=== PATIENT | female | born 1965 | race Caucasian/White ===

== ENCOUNTER 2016-10-22 18:03 | Inpatient (IN) | payer OTHER ==
--- NOTE | ~2016-10-22 | CO ---
Unit #: [id number] #: [id number] Patient: RAF WILLIS [id number] [address] [place], [place] [address] [id number] I MR#: [id number] NAME: RAF WILLIS. ROOM: 323 Age: 50 Sex: F Admission Date: 10/22/2016 : 1965 Attending Physician: Brant Anderson M.D. Primary Care Physician: Ranjan Montoya Jr., A.P.R.N. Consultation Date: 10/25/2016 CONSULTATION REPORT REASON FOR CONSULTATION Possible cholecystitis. Thank you very much for asking us to see Ms. Willis. HISTORY OF PRESENT ILLNESS She is a 50-year-old white female, who has metastatic breast cancer to the bone, liver, and brain. She developed a cough and shortness of breath. She was seen by her family physician and referred to the emergency room. On evaluation in the emergency room, she was found on CT scan of the chest to have patchy multifocal ground-glass infiltrates involving the periphery of the upper and lower lobes bilaterally characteristic bilateral pneumonia. Bony metastatic disease was seen involving the bilateral ribs, sternum, and thoracic spine. Multiple hqa-dyawmefe-nt-count low density nodules were found in both lobes of the liver. There were new since 12/2015 suggestive of hepatic metastatic disease. A CT scan of the abdomen and pelvis was then obtained, which revealed multifocal hepatic metastatic disease, diffuse skeletal metastatic disease, gallbladder wall thickening, or pericholecystic fluid. No gallstones were seen. The patient is not complaining of any abdominal pain or discomfort. She denies any GI bleeding. She presents at this time for further evaluation and treatment. PAST MEDICAL HISTORY 1. Metastatic breast cancer. 2. Hypertension. 3. Muscular dystrophy. 4. GERD. PAST SURGICAL HISTORY , left elbow surgery, oral surgery. ALLERGIES Nonsteroidal anti-inflammatory medications, oxycodone, aspirin, naproxen, Coreg, Zofran, latex. FAMILY HISTORY Sister with lung cancer and mother with breast cancer. SOCIAL HISTORY Positive for tobacco use. REVIEW OF SYSTEMS Unit #: [id number] #: [id number] Patient: RAF WILLIS Negative except for above. IMMUNIZATION STATUS Unknown. MEDICATIONS Please see med rec sheet. PHYSICAL EXAMINATION GENERAL: Thin white female, in no apparent distress. VITAL SIGNS: Afebrile. Vital signs stable. NECK: Supple. No thyromegaly or adenopathy. BACK: Mild spinous tenderness, but no significant CVA tenderness. ABDOMEN: Flat, soft, minimally tender. Bowel sounds positive. DIAGNOSTIC STUDIES LABORATORY RESULTS: Reveal the patient to have a CMP that shows a glucose of 113, creatinine 0.5, total bilirubin of 1.4. AST 130, ALT 160, alk phos 310. PT is 10.8 with a PTT of 24. White count is 5.6 with hemoglobin 8.9, hematocrit 27.8, MCV is normal at 86.2, platelet count today is 41,000. IMPRESSION A 50-year-old white female with metastatic breast cancer with possible cholecystitis. We recommend IV fluids and IV antibiotics, which she is already on and proceed with ultrasound of the gallbladder and HIDA scan to see if there is evidence of acute cholecystitis. If she does indeed have acute cholecystitis, we would have discuss the options of operative intervention versus cholecystostomy tube after evaluation of her risks factors, potential benefits, and prognosis. All this has been fully explained with the patient in detail. She understands and requests to proceed. Thank you very much for this consultation. We appreciate it. Dictated by... Miles Stanley M.D. YOBANY/aida TD: 10/25/2016 07:26 JOB #: [id number] CC: [facility] CONSULTATION REPORT X Miles Stanley MD X CONSULTATION REPORT
--- NOTE | ~2016-10-22 | EKG ---
PATIENT: RAF BADILLO UNIT #: [id number] Ventricular Rate: 117 BPM Atrial Rate: 117 BPM P-R Interval: 146 ms QRS Duration: 76 ms Q-T Interval: 334 ms QTC Calculation(Bezet): 465 ms P [place]: 61 degrees Calculated R [place]: -49 degrees Calculated T [place]: 35 degrees Diagnosis Line: Sinus tachycardia Diagnosis Line: Possible Left atrial enlargement Diagnosis Line: Left axis deviation Diagnosis Line: Inferior infarct , age undetermined Diagnosis Line: Anterior infarct (cited on or before 19-JAN-2015) Diagnosis Line: Abnormal ECG Diagnosis Line: When compared with ECG of 27-JAN-2015 22:09, Diagnosis Line: Questionable change in initial forces of Lateral Diagnosis Line: leads Diagnosis Line: ST now depressed in Anterior leads Diagnosis Line: Confirmed by TIMOTHY CLAYTON MD ([id number]) on Diagnosis Line: 10/25/2016 12:01:47 AM INTERPRETING MD: FORREST EAGLE
--- NOTE | ~2016-10-22 | CR72 ---
[facility] A Service of [facility] & [facility] RADIOLOGY TEXT RESULTS PATIENT: RAF BADILLO LOCATION: [facility] 571-01 : [birth year] UNIT #: [id number] AGE: [address]: Saida Manzo MD SEX: F ORDER DR: [id number] [facility] [address] [facility] [place], [place] [address] [id number] I MR#: [id number] Acc #: [id number] NAME: RAF BADILLO. : 1965 SEX: F STUDY DATE/TIME: 10/22/2016 18:11 UNIT: [facility] ROOM: [facility] STUDY DESCRIPTION: CR Chest Single View Portable Attending Physician: Saida Manzo M.D. Referring Physician: Ranjan Montoya Jr., A.P.R.NArianna Ordering Physician: Tanisha Wong M.D. Primary Care Physician: Ranjan Montoya Jr., A.P.R.NArianna MEDICAL IMAGING REPORT This report is preliminary unless electronic signature is present EXAM Portable chest 10/22/2016. HISTORY Cough and fever beginning last night, breast carcinoma, bone and brain cancer. Smoking history for over 40 years. Chest congestion. FINDINGS The heart is normal in size. Lungs are hyperinflated, but otherwise clear. Old healed right rib fractures are noted involving the right ribs 3, 4, 5 and 6. These may represent pathologic fractures. Correlation suggested. Degenerative change in scoliosis of the thoracic spine. There is widening of the right paratracheal stripe and right suprahilar region. Underlying mass or adenopathy not excluded. There are no pleural effusions. No pneumothorax. IMPRESSION 1. Widening of the right paratracheal stripe and right suprahilar region. Underlying mass or adenopathy is not excluded. Consider correlation with chest CT. 2. Hyperinflation lungs. 3. Multiple right rib fractures with associated deformities possibly reflecting pathologic fractures. Dictated by... Kahlil Villegas M.D. THIS IS AN ELECTRONICALLY VERIFIED REPORT Kahlil Villegas M.D. at 10/23/2016 3:26 PM KRT/gz TD: 10/23/2016 13:38 JOB #: [id number] [facility] A Service of [facility] & [facility] RADIOLOGY TEXT RESULTS PATIENT: RAF BADILLO LOCATION: [place] [address] : [birth year] UNIT #: [id number] AGE: [address]: Saida Manzo MD SEX: F ORDER DR: MEDICAL IMAGING REPORT COPY
--- NOTE | ~2016-10-22 | CO ---
Unit #: [id number] #: [id number] Patient: RAF BADILLO [id number] [address] [place], [place] [address] [id number] I MR#: [id number] NAME: RAF BADILLO ROOM: 571 Age: 50 Sex: F Admission Date: 10/22/2016 : 1965 Attending Physician: Saida Manzo M.D. Primary Care Physician: Ranjan Montoya Jr., A.P.R.N. CONSULTATION REPORT REVISED REPORT CHIEF COMPLAINT Breast cancer stage IV progressive disease. Metastatic disease to the bone, dura, TENNIS DIRECTOR, possible parenchymal involvement, mutiple lesion in the liver. This is Dr. Roque's patient. HISTORY OF PRESENT ILLNESS This is a 50-year-old female who was diagnosed with right-sided breast cancer during January 2015. She has bony mets. The patient has received multiple antihormonal therapy. Currently, she is taking Faslodex. Recently, patient has nausea, vomiting. MRI of the brain showed widespread bony mets. There is a mass in the dura that is invading the parenchyma. Patient came with short of breath, cough, low-grade fever. The patient had a CT of the chest. There is bilateral pneumonia. There are multiple lesions in the liver. This is new. She has lost about 70 pounds since January 2015. REVIEW OF SYSTEMS CONSTITUTIONAL: No fever, no chills, no sweats, no weight loss. EYES: No visual symptoms. EARS, NOSE AND THROAT: There is no runny nose or sore throat or difficulty hearing. CARDIOVASCULAR: No chest pain. No shortness of breath. No palpitations. No orthopnea. No PND. RESPIRATORY: As mentioned above. GASTROINTESTINAL: No nausea, vomiting, diarrhea, constipation, hematochezia or melena. GENITOURINARY: No urinary frequency, hesitancy or urgency. No blood in the urine. MUSCULOSKELETAL: No muscle or joint pain. NEUROLOGIC: No headache. No numbness or tingling. No weakness. No seizure. PSYCHIATRIC: No anxiety, depression or mood disturbance. ENDOCRINE: No excessive urination or thirst. DERMATOLOGIC: No rash or change in the skin. ALLERGIC/IMMUNOLOGIC: No symptoms. Unit #: [id number] #: [id number] Patient: RAF BADILLO HEMATOLOGIC/LYMPHATIC: Denies any symptoms. PAST MEDICAL HISTORY Breast cancer stage IV progressive disease. Mets to dura. Mets to TENNIS DIRECTOR parenchyma and now liver. ALLERGIES Allergic to multiple medications. SOCIAL HISTORY The patient has smoked half pack per day for four years. Denied alcohol abuse. PAST SURGICAL HISTORY Elbow surgery. FAMILY HISTORY Mother of breast cancer in her 40s. Sister of lung cancer in her 40s. PHYSICAL EXAMINATION VITAL SIGNS: Afebrile. Pulse 103, respiratory rate 26, O2 saturations on 2 L 96%, blood pressure 100/72. GENERAL: Patient is comfortable. ECOG is 0. The patient is pleasant. HEENT: Moist mucosa. Pupils equally reactive to light. Extraocular muscles intact. Sclerae anicteric. No obvious bleeding from nasal mucosa or oral mucosa. Scalp normal. Hearing normal. NECK: No JVD. No lymphadenopathy. LYMPHATIC/HEMATOLOGIC: There is no palpable adenopathy in the neck, axilla or inguinal area. CARDIOVASCULAR: S1, S2. Regular rate and rhythm. No S3 or S4. RESPIRATORY: Bilateral wheezes. Chest symmetrical, normal. Clear to auscultation bilaterally. No rales, no rhonchi. No dullness to percussion. ABDOMEN/GASTROINTESTINAL: Abdomen is soft, nontender, nondistended. No hepatosplenomegaly. EXTREMITIES: There is no clubbing, no cyanosis, no edema. No varicose veins. NEUROLOGICAL: Patient is alert, awake and oriented x3. Cranial nerves II-XII are intact. Sensory grossly intact. Motor is 4/5 in all four extremities. Gait is normal. Station is normal. Language is normal. Memory is normal. DTRs +2 in all four extremities. MUSCULOSKELETAL: No joint swelling. No bony tenderness. No muscle tenderness. SKIN: No petechiae, no rash, no ecchymosis. PSYCHIATRIC: No anxiety. No delusions or hallucinations. There is no agitation. Eye contact is normal. Affect is appropriate. There is no flight of ideas. DIAGNOSTIC STUDIES LABORATORY: WBC 6.6, hemoglobin 9.5, platelets 47,000. Creatinine 0.7. LFTs slightly elevated. AST 144, ALT 172, alkaline phosphatase 314. IMAGING: CT of the chest and MRI as mentioned above. ASSESSMENT AND PLAN This is a 50-year-old female with the following active issues: 1. Breast cancer: It is ER/MO positive, HER-2/RODRIGO negative. The Unit #: [id number] #: [id number] Patient: RAF BADILLO patient has started with metastasis to the bone during January 2015, now she has progressive disease in the dura as well as brain parenchyma. There are multiple lesions in the liver. This is new. I have an extensive discussion with patient. I am going to do CT of the abdomen and pelvis to evaluate the liver metastases. As an outpatient, will consider possible chemotherapy including weekly Taxol. 2. Respirations: The patient has bilateral pneumonia. She received antibiotics. 3. Anemia: Will check iron studies. PROGNOSIS Her prognosis is guarded. She will discuss with Dr. Roque on Tuesday. Dictated by... Pepe Salvador TD: 10/23/2016 14:17 JOB #: [id number] CC: Nichelle/rheaision Please Delete CONSULTATION REPORT X Krystle Vivar MD CONSULTATION REPORT
--- NOTE | ~2016-10-22 | NM21 ---
[facility] A Service of [facility] & [facility] RADIOLOGY TEXT RESULTS PATIENT: RAF BADILLO LOCATION: [facility] 323-01 : 63 UNIT #: [id number] AGE: [address]: Brant Anderson MD SEX: F ORDER DR: [id number] [place] [address] [facility]. [place], [place] [address] [id number] I MR#: [id number] Acc #: [id number] NAME: RAF BADILLO : 1965 SEX: F STUDY DATE/TIME: 10/25/2016 10:33 UNIT: [address] ROOM: [facility] STUDY DESCRIPTION: HARJEET Hepatobiliary W GB Attending Physician: Brant Anderson M.D. Referring Physician: Ranjan Montoya Jr., A.P.R.NArianna Ordering Physician: Miles Stanley M.D. Primary Care Physician: Ranjan Montoya Jr., A.P.R.N. MEDICAL IMAGING REPORT This report is preliminary unless electronic signature is present EXAM HIDA scan, 10/25/2016 HISTORY Right upper quadrant abdominal pain since 10/22/2016. Abnormally elevated liver enzymes. Cholelithiasis. FINDINGS The patient received an intravenous injection of 5.11 mCi of technetium 99m tagged Choletec for hepatobiliary imaging. Fairly homogeneous distribution of the radiotracer is seen. Gallbladder activity was seen by 30 minutes postinjection of the radiopharmaceutical. IMPRESSION Normal HIDA scan. Dictated by... Kahlil Villegas M.D. THIS IS AN ELECTRONICALLY VERIFIED REPORT Kahlil Villegas M.D. at 10/26/2016 8:00 AM HAYLEY/la nena TD: 10/25/2016 14:54 JOB #: [id number] MEDICAL IMAGING REPORT COPY
--- NOTE | ~2016-10-22 | CT2 ---
[facility] A Service of [facility] RADIOLOGY TEXT RESULTS PATIENT: RAF BADILLO LOCATION: [facility] 323-01 : 63 UNIT #: [id number] AGE: [address]: Brant Anderson MD SEX: F ORDER DR: [id number] [facility] [address] [facility]. [place], [place] [address] [id number] I MR#: [id number] Acc #: [id number] NAME: RAF BADILLO. : 1965 SEX: F STUDY DATE/TIME: 10/23/2016 15:15 UNIT: [facility] ROOM: 1 STUDY DESCRIPTION: CT Abd and Pelv W Cont Attending Physician: Saida Manzo M.D. Referring Physician: Ranjan Montoya Jr., A.P.R.N. Ordering Physician: Krystle Vivar M.D. Primary Care Physician: Ranjan Montoya Jr., A.P.R.N. MEDICAL IMAGING REPORT This report is preliminary unless electronic signature is present EXAM CT abdomen and pelvis with contrast. INDICATIONS Cough and fever for the past day, with generalized abdominal pain today. PROCEDURE Contrast-enhanced CT of the abdomen and pelvis, 100 mL of Isovue-370. This CT exam was performed with one or more of the following radiation dose reduction techniques: automatic exposure control, adjustment of mA and/or kV according to patient size, and iterative reconstruction. COMPARISON Comparison is 12/16/2015. FINDINGS Abdomen with contrast: Minimal bibasilar opacity, probably representing atelectasis. Apparently new multifocal small hypoenhancing nodules throughout the liver. No splenic lesion is seen. The kidneys, adrenal glands, pancreas unremarkable. There is diffuse gallbladder wall thickening. There is also a trace amount of perihepatic fluid. No radiodense gallstones. The bowel loops are nondilated. Moderate colonic stool burden. Pelvis with contrast: No pelvic mass. Diffuse skeletal metastatic disease is very similar to the prior. IMPRESSION [facility] A Service of [facility] RADIOLOGY TEXT RESULTS PATIENT: RAF BADILLO LOCATION: [facility] 323-01 : [birth year] UNIT #: [id number] AGE: [address]: Brant Anderson MD SEX: F ORDER DR: 1. Suspected new multifocal hepatic metastatic disease. 2. Diffuse skeletal metastatic disease is similar to the previous study. 3. There is gallbladder wall thickening or pericholecystic fluid as well as a small amount of perihepatic fluid. No radiodense gallstones are seen. It is nonspecific on CT. Could be related to some adjacent liver inflammation, but correlate with any suspicion of acute cholecystitis. Dictated by... Torey Riojas M.D. THIS IS AN ELECTRONICALLY VERIFIED REPORT Torey Riojas M.D. at 10/26/2016 7:01 AM SAGE/sejal TD: 10/24/2016 08:15 JOB #: [id number] MEDICAL IMAGING REPORT COPY
--- NOTE | ~2016-10-22 | HP ---
Unit #: [id number] #: [id number] Patient: RAF BADILLO [id number] [address] [place], [place] [address] [id number] I MR#: [id number] NAME: RAF BADILLO. ROOM: 69644 Age: 50 Sex: F Admission Date: 10/22/2016 : 1965 Attending Physician: Katt Thomas M.D. Referring Physician: Ranjan Montoya Jr., Caleb.PAriannaRUli. Primary Care Physician: Ranjan Montoya Jr., DalePAriannaRDenise HISTORY AND PHYSICAL CHIEF COMPLAINT Cough, shortness of breath, chills, fever. DISCUSSION This is a 50-year-old female with a past medical history of metastatic right breast cancer to brain, liver, bone, skull, history of hyperglycemia, hypertension, muscular dystrophy, GERD, lower extremity edema, anxiety. She said she had been sick since last night. She has been coughing the whole night. She went to see the primary care physician's office today. She had been coughing and with shortness of breath was given mini-nebulizers and in office the patient was found to be in 80 to 90 and eventually she was sent to the ER. In ER in workup she was found to be with abnormal LFTs, AST 191, ALT 234, alkaline phosphatase 441 and influenza A positive. CT scan shows diffuse bilateral pneumonia. Eventually she has been admitted. She has had symptoms that started yesterday and got worse overnight. She has a low-grade fever but she denies nausea, vomiting, chest pain, loss of consciousness, headache or other complaint. PAST MEDICAL HISTORY 1. History of metastatic right breast cancer to brain, liver and bone. 2. History of hypertension. 3. Muscular dystrophy. 4. GERD. 5. Anxiety. 6. Lower extremity edema. PAST SURGICAL HISTORY 1. History of . 2. Left elbow surgery. 3. Oral surgery. ALLERGIES NSAIDs, lisinopril, oxycodone, aspirin, naproxen, Coreg, Zofran, latex, ARBs. FAMILY HISTORY Sister has a history of lung cancer. Mother of breast cancer. SOCIAL HISTORY She smokes a half a pack daily whole life, denies other/illicit drug use. REVIEW OF SYSTEMS Unit #: [id number] #: [id number] Patient: RAF BADILLO All review of systems negative except (1) . HOME MEDICATION Medication from home is followin. Omeprazole 20 mg daily. 2. Lasix 20 mg b.i.d. 3. Promethazine 25 mg q.6 h. 4. Ativan 0.5 mg q.h.s. 5. Amlodipine 10 mg daily. 6. Anastrozole 1 mg daily. 7. Calcium with vitamin D one tablet daily. 8. MS Contin 30 mg b.i.d. 9. Compazine 10 mg q.6 h. 10. Dexamethasone 4 mg daily. PHYSICAL EXAMINATION GENERAL: On examination elderly female lying in the bed comfortably, currently not in any distress. On general examination she is awake, alert and oriented x3. VITAL SIGNS: Current vitals are following: Temperature 98.6, heart rate 128, respiratory rate 20, blood pressure 128/ (1) , oxygen 96% on room air. HEENT: On HEENT examination pupils equally react to light. Head is normocephalic and atraumatic. NECK: Supple. No JVD. HEART: S1, S2. Regular rhythm and tachycardia. LUNGS: Bilateral rhonchi. Crackles positive. ABDOMEN: Soft, nontender and nondistended. Bowel sounds positive. EXTREMITIES: 1+ edema positive. NEUROLOGIC: No focal neurologic deficit. DIAGNOSTIC STUDIES IMAGING: CT scan shows patchy multiple ground-glass opacities bilaterally in both upper and lower lobes, multiple metastases in the bones and the ribs bilaterally and sternum and spine. ASSESSMENT AND PLAN 1. Bilateral pneumonia: I have started the patient on IV Zosyn, vancomycin, oxygen, asked Pulmonary to evaluate. 2. Influenza A: Started on Tamiflu. 3. Thrombocytopenia. 4. Abnormal liver function tests, most likely secondary to metastatic disease to liver. 5. Metastatic breast cancer to brain, liver, bone with multiple hugo metastases to sternum, ribs. 6. Pathological rib fractures. 7. History of hyperkalemia secondary to hugo metastases. 8. Hypertension. 9. History of muscular dystrophy. 10. Gastroesophageal reflux disease. 11. Lower extremity edema. 12. Anxiety. 13. DVT prophylaxis: Will place the patient on SCDs. With thrombocytopenia avoid Lovenox. Unit #: [id number] #: [id number] Patient: RAF BADILLO Dictated by Pepe Jamison/lamin TD: 10/22/2016 22:12 JOB #: [id number] HISTORY AND PHYSICAL X X HISTORY AND PHYSICAL
--- NOTE | ~2016-10-22 | OR ---
Unit #: [id number] #: [id number] Patient: RAF BADILLO [id number] [address] [address] [id number] I MR#: [id number] NAME: RAF BADILLO. ROOM: 323 Date of Procedure: 10/25/2016 Admission Date: 10/22/2016 Surgeon: Hailey Buckner M.D. : 1965 Attending Physician: Brant Anderson M.D. Referring Physician: Ranjan Montoya Jr., Caleb.PAriannaRDenise Primary Care Physician: Ranjan Montoya Jr., DalePAriannaRDenise PROCEDURE OPERATIVE NOTE PROCEDURE PERFORMED Diagnostic bronchoscopy. INDICATION FOR PROCEDURE Pneumonia. PREPROCEDURE DIAGNOSIS Pneumonia. POSTPROCEDURE DIAGNOSIS Pneumonia. DETAILS OF PROCEDURE After taking consent from the patient, explaining the risks and benefits, patient was placed in the appropriate position. The bronchoscope was introduced through the oral cavity. The vocal cords appeared to be symmetrically moving toward the midline. Trachea was normal. The home was sharp. We examined the right upper lobe, right middle lobe, right lower lobe, left upper lobe, lingula and left lower lobe. No endobronchial lesions were found. There were thick mucoid secretions, which were therapeutically suctioned. Then, we did a bronchoalveolar lavage in the right lower lobe area with 60 mL of saline in and 30 mL back. The patient tolerated the procedure very well. No complications happened. Dictated by... Pepe Bullard/aftab TD: 10/25/2016 15:25 JOB #: [id number] Unit #: [id number] #: [id number] Patient: RAF BADILLO PROCEDURE OPERATIVE NOTE X Hailey Buckner MD PROCEDURE OPERATIVE NOTE
--- NOTE | ~2016-10-22 | DS ---
Unit #: [id number] #: [id number] Patient: RAF BADILLO [id number] [address] [address] [id number] I MR#: [id number] NAME: RAF BADILLO. ROOM: 323 Age: 50 Sex: F Admission Date: 10/22/2016 : 1965 Discharge Date: 10/26/2016 Attending Physician: Brant Anderson M.D. Referring Physician: Ranajn Montoya Jr., A.P.RUli. Primary Care Physician: Ranjan Montoya Jr., Caleb.P.RDenise DISCHARGE SUMMARY REASON FOR ADMISSION Shortness of breath and acute respiratory failure. HISTORY OF PRESENT ILLNESS/HOSPITAL COURSE The patient is a pleasant 50-year-old female, who was originally admitted secondary to acute respiratory failure. She unfortunately has metastatic breast cancer with bone metastatic disease to the brain, spine, lower extremities as well as recent diagnosis of metastatic disease to the liver, who was originally admitted secondary to acute respiratory failure. While she was evaluated in the emergency room, her CT scan showed diffuse bilateral pneumonia and she was flu A positive. She was subsequently admitted and placed on telemetry floor in consideration of her discomfort in the abdomen as well as consideration of elevated LFTs and we did place consultation to [facility] for consideration for possible cholecystectomy as she underwent a CT chest, which did show gallstones, but considering that she had liver metastatic disease. They recommended no further intraoperative management. Dr. Buckner was consulted from Pulmonary Services secondary to bilateral pneumonia and because of associated immunosuppression from metastatic breast carcinoma concern for possible atypical organisms. The patient underwent bronchoscopy on 10/25/2016. Please see procedure note for complete details. The patient was gradually more stable and placed on room air, and was cleared from Pulmonary from Dr. Buckner's standpoint for discharge on p.o. Augmentin. At the time of discharge, she was reverted back to her home medications with no changes. Prior to discharge, the patient's sister who carries the patient's power of managing attorney, who is also an RN, initiated discussion and consideration for possible hospice care and long-term prognosis because the patient is routinely followed by Dr. Roque as an outpatient. I did discuss it with her and mentioned to her that this would be an important conversation to have as an outpatient with Dr. Roque in consideration of her prognosis, which likely is poor. She expressed agreement and the patient was discharged in stable condition to home. FINAL DISCHARGE DIAGNOSES 1. Acute hypoxic respiratory failure. Unit #: [id number] #: [id number] Patient: RAF BADILLO 2. Multifocal pneumonia, community acquired. 3. Metastatic breast carcinoma with metastatic lesions present in skull, liver, as well as throughout spine, and lower extremity. 4. Likely mild dementia. 5. Muscular dystrophy history. 6. Hypertension. 7. Gastroesophageal reflux disease. 8. Anxiety. DISCHARGE MEDICATIONS Discharge medications remain unchanged from home medications with the addition of Augmentin at time of discharge. Dictated by... Brant Anderson M.D. FRANKLYN/aida TD: 11/02/2016 03:18 JOB #: [id number] DISCHARGE SUMMARY Page 1 of 1 X Brant Anderson MD X DISCHARGE SUMMARY
--- NOTE | ~2016-10-22 | CT57 ---
[facility] A Service of [facility] & [facility] RADIOLOGY TEXT RESULTS PATIENT: RAF BADILLO LOCATION: [facility] 571-01 : 63 UNIT #: [id number] AGE: [address]: Saida Manzo MD SEX: F ORDER DR: [id number] [facility] [address] [place], [place] [address] [id number] I MR#: [id number] Acc #: [id number] NAME: RAF BADILLO. : 1965 SEX: F STUDY DATE/TIME: 10/22/2016 19:33 UNIT: [facility] ROOM: [facility] STUDY DESCRIPTION: CT Chest Wo Cont Attending Physician: Saida Manzo M.D. Referring Physician: Ranjan Montoya Jr., A.P.R.NArianna Ordering Physician: Tanisha Wong M.D. Primary Care Physician: Ranjan Montoya Jr., A.P.R.NArianna MEDICAL IMAGING REPORT This report is preliminary unless electronic signature is present EXAM CT scan of the chest, without contrast, 10/22/2016. HISTORY Cough and fever for 24 hours with acute onset of vomiting and hypertension. Breast carcinoma with metastatic disease to the skeleton. TECHNIQUE Spiral CT was performed through the chest without intravenous contrast administration, as per clinician request. Note: All CT scans at this facility use dose modulation, iterative reconstruction and/or weight-based dosing to reduce radiation dose to as low as reasonably achievable. FINDINGS There are patchy multifocal areas of ground glass infiltrate involving the lateral aspect of the upper and lower lobes bilaterally, characteristic of bilateral pneumonia. No pulmonary mass is seen. The heart is normal in size. There is no significant thoracic adenopathy. Multiple right rib deformities are noted, probably reflecting pathologic fractures. Osseous metastatic disease involving the sternum, bilateral ribs, and the thoracic spine is again noted. This would be better evaluated with whole body bone scan, if clinically indicated. Images of the upper abdomen demonstrate multiple wxp-redakiot-bz-count low density nodules scattered throughout both hepatic lobes, suggesting metastatic disease. The adrenal glands are normal. IMPRESSION 1. Patchy multifocal ground glass infiltrates involving the periphery of the upper and lower lobes bilaterally, characteristic of bilateral pneumonia. 2. Osseous metastatic disease as noted previously, involving bilateral ribs, the sternum, and the thoracic spine. [facility] A Service of [facility] & [facility] RADIOLOGY TEXT RESULTS PATIENT: RAF BADILLO LOCATION: [place] [address] : [birth year] UNIT #: [id number] AGE: [address]: Saida Manzo MD SEX: F ORDER DR: 3. Multiple dvd-xfuscjhp-xt-count ill-defined low density nodules involving both hepatic lobes, new since 12/16/2015, characteristic of hepatic metastatic disease. Dictated by... Kahlil Villegas M.D. THIS IS AN ELECTRONICALLY VERIFIED REPORT Kahlil Villegas M.D. at 10/23/2016 3:31 PM HAYLEY/karma TD: 10/23/2016 15:05 JOB #: [id number] MEDICAL IMAGING REPORT COPY
--- NOTE | ~2016-10-22 | US6 ---
[facility] A Service of [facility] & [facility] RADIOLOGY TEXT RESULTS PATIENT: RAF BADILLO LOCATION: [facility] 323-01 : 63 UNIT #: [id number] AGE: [address]: Brant Anderson MD SEX: F ORDER DR: [id number] [facility] [address] [place], [place] [address] [id number] I MR#: [id number] Acc #: [id number] NAME: RAF BADILLO : 1965 SEX: F STUDY DATE/TIME: 10/25/2016 10:41 UNIT: [address] ROOM: [facility] STUDY DESCRIPTION: US Abdominal Limited Attending Physician: Brant Anderson M.D. Referring Physician: Ranjan Montoya Jr., A.P.R.NArianna Ordering Physician: Miles Stanley M.D. Primary Care Physician: Ranjan Montoya Jr., A.P.R.N. MEDICAL IMAGING REPORT This report is preliminary unless electronic signature is present EXAM Right upper quadrant ultrasound 10/25/2016 INDICATION 50-year-old female who had a CT performed yesterday that demonstrated wall thickening. Abdominal pain intermittently for 3 days. Breast cancer and metastatic disease on CT performed 10/23/2016. TECHNIQUE Sonographic imaging of the right upper quadrant was performed. Correlation is made with CT 10/23/2016 and nuclear medicine HIDA scan 10/25/2016. FINDINGS Visualized aspects of the pancreas are unremarkable. Significant portions were obscured by bowel gas and not seen or evaluated. Liver measures 12.1 cm long axis. The liver parenchyma is abnormal. There are multiple hypoechoic solid-appearing masses within the liver involving both the left and right hepatic lobes. Imaging features are most characteristic of metastatic disease from the history of breast cancer. Metastatic lesions were also identified on the prior CT. Please see that report for further details. No ascites or intrahepatic ductal dilatation. The right kidney is nonobstructed measuring 9.9 cm long axis. The gallbladder demonstrates cholelithiasis, wall thickening and gallbladder wall edema. The gallbladder wall measures up to 9 mm. The technologist reports a positive sonographic Wen's sign. Extrahepatic common bile duct measures 3-4 mm. Correlation with nuclear medicine HIDA scan performed 10/25/2016, however, demonstrates uptake within the gallbladder most characteristic of patency of the cystic duct. The wall thickening and right upper quadrant pain on ultrasound are nonspecific in the setting of a negative HIDA scan, however, the degree of wall thickening of the gallbladder is normally not associated with intrinsic STS. [facility] A Service of [facility] RADIOLOGY TEXT RESULTS PATIENT: RAF BADILLO LOCATION: [facility] 323-01 : 63 UNIT #: [id number] AGE: [address]: Brant Anderson MD SEX: F ORDER DR: gallbladder disease but rather normally associated with underlying hepatic dysfunction which would be explained by the patient's liver metastases or underlying hepatitis. Imaging findings in the case have been discussed directly by telephone with Dr. Stanley at the time of this dictation. IMPRESSION 1. The ultrasound of the right upper quadrant demonstrates gallbladder wall thickening and cholelithiasis but the degree of wall thickening is greater than normally associated with intrinsic gallbladder disease and normally associated with hepatic dysfunction or hepatitis which could be explained by the patient's liver metastases. In addition, the nuclear medicine HIDA scan performed on the same date is negative demonstrating patency of the cystic duct. Altogether findings most likely reflect sequela of underlying hepatic dysfunction and metastatic disease to the liver rather than acute cholecystitis. Findings have been discussed with Dr. Stanley by telephone at the time of this dictation. 2. The liver demonstrates numerous solid masses most characteristic of metastatic disease. These are better demonstrated on the patient's CT 10/23/2016. See that report for further details. 3. No ascites, intra- or extrahepatic biliary ductal dilatation. STAT * RESULT Dictated by... Abdifatah Pena M.D. THIS IS AN ELECTRONICALLY VERIFIED REPORT Abdifatah Pena M.D. at 10/25/2016 4:13 PM KIKE/ravi TD: 10/25/2016 14:11 JOB #: [id number] MEDICAL IMAGING REPORT COPY
[~2016-10-22 18:03] MED LIST: ATIVAN0.5 M1 PO; DOCUSATE SODIU100 MG PO; LORTAB 7.5-3251 EACH; MS CONTIN15 MG PO; NO MEDICATIONS; NORVASC10 MG
[2016-10-22 18:32] LABS: BASOPHIL% 0.2 % (0-2.5); EOSINOPHIL% 0.1 % (0.0-7.0); HEMATOCRIT 35.4 % (35.0-45.0); HEMOGLOBIN 11.5 gm/dL (12.0-16.0); LYMPHOCYTE# 0.9 X10e3 (1.0-3.5); LYMPHOCYTE% 9.5 % (17.0-45.0); MEAN CELL VOLUME 84.6 FL (83-96); MEAN CORPUSCULAR HEMOGLOBIN 27.6 PG (28-34); MEAN CORPUSCULAR HGB CONC 32.6 g/dL (30-36); MEAN PLATELET VOLUME 8.8 FL (6.5-11.5); MONOCYTE# 0.9 X10e3 (0-1.0); MONOCYTE% 9.7 % (3.0-12.0); NEUTROPHIL# 7.7 X10e3 (1.5-7.1); NEUTROPHIL% 80.5 % (40-75); PLATELET COUNT 66 X10e3 (140-420); RED BLOOD COUNT 4.18 X10e (3.90-5.30); RED CELL DISTRIBUTION WIDTH 23.8 % (11.0-15.5); WHITE BLOOD COUNT 9.6 X10e3 (4.0-10.5)
[2016-10-22 18:33] LABS: DIFF IND YES
[2016-10-22 18:41] LABS: PROTHROMBIN TIME (PATIENT) 10.8 SECONDS (9.6-11.5)
[2016-10-22 18:47] LABS: ALBUMIN SERUM 3.4 g/dL (3.5-5.0); ALKALINE PHOSPHATASE 441 U/L (32-92); ALT (SGPT) 234 U/L (10-40); AST (SGOT) 191 U/L (10-42); BILIRUBIN, DIRECT 0.7 mg/dL (0.0-0.2); BILIRUBIN,TOTAL 1.7 mg/dL (0.2-2.0); BLOOD UREA NITROGEN 26 mg/dL (9-23); CALCIUM SERUM 9.9 mg/dL (8.4-10.2); CARBON DIOXIDE 25 mmol/L (22-31); CHLORIDE 101 mmol/L (100-111); CREATININE SERUM 0.4 mg/dL (0.6-1.4); GLOM FILT RATE Estimated ABOVE60 mL/min (>60); GLUCOSE FASTING 110 mg/dL (70-110); POTASSIUM 3.6 mmol/L (3.5-5.1); PROTEIN TOTAL SERUM 5.9 g/dL (6.0-8.3); SODIUM 139 mmol/L (135-145)
[2016-10-22 18:55] LABS: POC - CKMB 2.5 ng/mL (0.0-7.9); POC - TROPONIN <0.05 ng/mL (<=0.05)
[2016-10-22 18:56] LABS: NUCLEATED RED BLOOD CELL 4 /100 (0)
[2016-10-22 18:57] LABS: PLATELET ESTIMATE DECREASED (NORMAL)
[2016-10-22 18:59] LABS: STOMATOCYTE PRESENT
[2016-10-22 19:02] LABS: INFLUENZA A POS (NEG); INFLUENZA B NEG (NEG)
[2016-10-22] MEDS ORDERED: CALCIUM 600 +1 EAC2 PO (20:14)
[2016-10-22] MEDS ORDERED: ANASTROZOLE1 MG PO (20:14)
[2016-10-22] MEDS ORDERED: MS CONTIN30 M1 PO (20:16)
[2016-10-22] MEDS ORDERED: COMPAZINE10 M2 PO (20:18)
[2016-10-22] MEDS ORDERED: DEXAMETHASONE4 MG PO (20:19)
[2016-10-22] MEDS ORDERED: LASIX20 MG PO (20:20)
[2016-10-22] MEDS ORDERED: PROMETHAZINE HC25 MG PO (20:21)
[2016-10-22] MEDS ORDERED: ATIVAN0.5 M1 PO (20:21)
[2016-10-22] MEDS ORDERED: AMLODIPINE BESY10 MG PO (20:22)
[2016-10-22] MEDS ORDERED: OMEPRAZOLE20 M1 PO (20:24)
[2016-10-23 07:44] LABS: BASOPHIL% 0.2 % (0-2.5); EOSINOPHIL% 0.1 % (0.0-7.0); HEMATOCRIT 29.9 % (35.0-45.0); HEMOGLOBIN 9.5 gm/dL (12.0-16.0); LYMPHOCYTE# 0.6 X10e3 (1.0-3.5); LYMPHOCYTE% 9.1 % (17.0-45.0); MEAN CELL VOLUME 86.1 FL (83-96); MEAN CORPUSCULAR HEMOGLOBIN 27.5 PG (28-34); MEAN CORPUSCULAR HGB CONC 31.9 g/dL (30-36); MONOCYTE# 0.5 X10e3 (0-1.0); MONOCYTE% 8.1 % (3.0-12.0); NEUTROPHIL# 5.4 X10e3 (1.5-7.1); NEUTROPHIL% 82.5 % (40-75); RED BLOOD COUNT 3.47 X10e (3.90-5.30); RED CELL DISTRIBUTION WIDTH 23.6 % (11.0-15.5); WHITE BLOOD COUNT 6.6 X10e3 (4.0-10.5)
[2016-10-23 07:45] LABS: DIFF IND NO; PLATELET COUNT 47 X10e3 (140-420)
[2016-10-23 07:59] LABS: ALBUMIN SERUM 2.7 g/dL (3.5-5.0); ALKALINE PHOSPHATASE 314 U/L (32-92); ALT (SGPT) 172 U/L (10-40); AST (SGOT) 144 U/L (10-42); BILIRUBIN,TOTAL 1.6 mg/dL (0.2-2.0); BLOOD UREA NITROGEN 22 mg/dL (9-23); BUN/CREATININE RATIO 31.42; CALCIUM SERUM 8.7 mg/dL (8.4-10.2); CARBON DIOXIDE 25 mmol/L (22-31); CHLORIDE 106 mmol/L (100-111); CREATININE SERUM 0.7 mg/dL (0.6-1.4); GLOM FILT RATE Estimated ABOVE60 mL/min (>60); GLUCOSE FASTING 125 mg/dL (70-110); POTASSIUM 4.1 mmol/L (3.5-5.1); PROTEIN TOTAL SERUM 4.7 g/dL (6.0-8.3); SODIUM 139 mmol/L (135-145)
[2016-10-24 05:48] LABS: HEMATOCRIT 26.7 % (35.0-45.0); HEMOGLOBIN 8.5 gm/dL (12.0-16.0); MEAN CELL VOLUME 85.9 FL (83-96); MEAN CORPUSCULAR HEMOGLOBIN 27.4 PG (28-34); MEAN CORPUSCULAR HGB CONC 31.9 g/dL (30-36); MEAN PLATELET VOLUME 8.5 FL (6.5-11.5); RED BLOOD COUNT 3.11 X10e (3.90-5.30); RED CELL DISTRIBUTION WIDTH 23.2 % (11.0-15.5); WHITE BLOOD COUNT 5.2 X10e3 (4.0-10.5)
[2016-10-24 06:11] LABS: ALBUMIN SERUM 2.5 g/dL (3.5-5.0); ALKALINE PHOSPHATASE 310 U/L (32-92); ALT (SGPT) 160 U/L (10-40); AST (SGOT) 130 U/L (10-42); BILIRUBIN,TOTAL 1.4 mg/dL (0.2-2.0); BLOOD UREA NITROGEN 19 mg/dL (9-23); CALCIUM SERUM 8.9 mg/dL (8.4-10.2); CARBON DIOXIDE 27 mmol/L (22-31); CHLORIDE 109 mmol/L (100-111); CREATININE SERUM 0.5 mg/dL (0.6-1.4); GLOM FILT RATE Estimated ABOVE60 mL/min (>60); GLUCOSE FASTING 113 mg/dL (70-110); POTASSIUM 3.8 mmol/L (3.5-5.1); PROTEIN TOTAL SERUM 4.6 g/dL (6.0-8.3); SODIUM 138 mmol/L (135-145)
[2016-10-24 06:18] LABS: IRON SERUM 152 ug/dL (28-170); TOTAL IRON BINDING CAPACITY 165 ug/dL (269-535); TRANSFERRIN 118 mg/dL (192-382); TRANSFERRIN SATURATION 92 % (20-50)
[2016-10-24 06:39] LABS: FERRITIN >1500 ng/mL (11-307)
[2016-10-25 06:29] LABS: HEMATOCRIT 27.8 % (35.0-45.0); HEMOGLOBIN 8.9 gm/dL (12.0-16.0); MEAN CELL VOLUME 86.2 FL (83-96); MEAN CORPUSCULAR HEMOGLOBIN 27.7 PG (28-34); MEAN CORPUSCULAR HGB CONC 32.1 g/dL (30-36); MEAN PLATELET VOLUME 9.7 FL (6.5-11.5); RED BLOOD COUNT 3.22 X10e (3.90-5.30); RED CELL DISTRIBUTION WIDTH 23.5 % (11.0-15.5); WHITE BLOOD COUNT 5.6 X10e3 (4.0-10.5)
[2016-10-25 06:52] LABS: ALBUMIN SERUM 2.6 g/dL (3.5-5.0); ALKALINE PHOSPHATASE 355 U/L (32-92); ALT (SGPT) 164 U/L (10-40); AST (SGOT) 140 U/L (10-42); BILIRUBIN,TOTAL 2.2 mg/dL (0.2-2.0); BLOOD UREA NITROGEN 13 mg/dL (9-23); BUN/CREATININE RATIO 43.33; CALCIUM SERUM 9.6 mg/dL (8.4-10.2); CARBON DIOXIDE 30 mmol/L (22-31); CHLORIDE 102 mmol/L (100-111); CREATININE SERUM 0.3 mg/dL (0.6-1.4); GLOM FILT RATE Estimated ABOVE60 mL/min (>60); GLUCOSE FASTING 80 mg/dL (70-110); PROTEIN TOTAL SERUM 4.6 g/dL (6.0-8.3); SODIUM 140 mmol/L (135-145)
[2016-10-25 17:46] LABS: BODY FLUID APPEARANCE TURBID; BODY FLUID SOURCE BRONCHIAL LAVAGE
[2016-10-26 09:13] LABS: HEMATOCRIT 32.6 % (35.0-45.0); HEMOGLOBIN 10.3 gm/dL (12.0-16.0); MEAN CORPUSCULAR HEMOGLOBIN 27.5 PG (28-34); MEAN CORPUSCULAR HGB CONC 31.6 g/dL (30-36); MEAN PLATELET VOLUME 9.4 FL (6.5-11.5); RED BLOOD COUNT 3.75 X10e (3.90-5.30); RED CELL DISTRIBUTION WIDTH 24.1 % (11.0-15.5); WHITE BLOOD COUNT 7.5 X10e3 (4.0-10.5)
[2016-10-26 09:46] LABS: ALBUMIN SERUM 2.9 g/dL (3.5-5.0); ALKALINE PHOSPHATASE 475 U/L (32-92); ALT (SGPT) 183 U/L (10-40); AST (SGOT) 162 U/L (10-42); BILIRUBIN,TOTAL 2.5 mg/dL (0.2-2.0); BLOOD UREA NITROGEN 19 mg/dL (9-23); BUN/CREATININE RATIO 31.66; CALCIUM SERUM 9.6 mg/dL (8.4-10.2); CARBON DIOXIDE 27 mmol/L (22-31); CHLORIDE 101 mmol/L (100-111); CREATININE SERUM 0.6 mg/dL (0.6-1.4); GLOM FILT RATE Estimated ABOVE60 mL/min (>60); GLUCOSE FASTING 93 mg/dL (70-110); POTASSIUM 4.2 mmol/L (3.5-5.1); PROTEIN TOTAL SERUM 5.1 g/dL (6.0-8.3); SODIUM 139 mmol/L (135-145)
[2016-10-26] MEDS ORDERED: TAMIFLU75 M1 PO (10:46)
[2016-10-26] MEDS ORDERED: PREDNISONE PO (16:29)
[2016-10-26] MEDS ORDERED: AUGMENTIN PO (16:29)
== END 2016-10-26 17:13 | disposition home or self-care (01) | DRG 193 ==
LOC: CED 18:03 → CEDOF 20:58 → C5C 22:39 → C3A PCU 10-25 09:00
PROVIDERS: Family Medicine; Internal Medicine; Internal Medicine Hematology; Student in an Organized Health Care Education/Training Program
PROC: 0B968ZX Drainage of Right Lower Lobe Bronchus, Via Natural or Artificial Opening Endoscopic, Diagnostic (ICD-10-PCS; 2016-10-25)
PROC: 0BC68ZZ Extirpation of Matter from Right Lower Lobe Bronchus, Via Natural or Artificial Opening Endoscopic (ICD-10-PCS; 2016-10-25 14:00)
PROC: 3E0234Z Introduction of Serum, Toxoid and Vaccine into Muscle, Percutaneous Approach (ICD-10-PCS; principal; 2016-10-26)
DX: J11.00 Influenza due to unidentified influenza virus with unspecified type of pneumonia (principal); J96.01 Acute respiratory failure with hypoxia; C78.7 Secondary malignant neoplasm of liver and intrahepatic bile duct; C79.31 Secondary malignant neoplasm of brain; G71.0 Muscular dystrophy; J44.0 Chronic obstructive pulmonary disease with (acute) lower respiratory infection; E83.52 Hypercalcemia; C79.51 Secondary malignant neoplasm of bone; D69.6 Thrombocytopenia, unspecified; J44.1 Chronic obstructive pulmonary disease with (acute) exacerbation; E44.0 Moderate protein-calorie malnutrition; C50.911 Malignant neoplasm of unspecified site of right female breast; Z17.0 Estrogen receptor positive status [ER+]; F17.210 Nicotine dependence, cigarettes, uncomplicated; Z90.710 Acquired absence of both cervix and uterus; K21.9 Gastro-esophageal reflux disease without esophagitis; Z23 Encounter for immunization
CPT/HCPCS: 36415; 71010; 71250; 74177; 76705; 78226; 80048; 80053; 80076; 82308; 82553; 82607; 82728; 83540; 83550; 83605; 83735; 84484; 85025; 85027; 85610; 85730; 87040; 87070; 87102; 87106; 87107; 87116; 87205; 87206; 87252; 87254; 87278; 87804; 88108; 88305; 88312; 89051; 90688; 93005; 94640; 94760; 97162; 97166; 97530; 97535; 99285; A9537; J0171; J2250; J2405; J2543; J2920; J3010; J3370; Q9967

== ENCOUNTER 2016-10-31 22:23 | Inpatient (IN) | payer OTHER ==
--- NOTE | ~2016-10-31 | CT57 ---
[facility] A Service of [facility] & [facility] RADIOLOGY TEXT RESULTS PATIENT: RAF BADILLO LOCATION: [facility] 326- : 63 UNIT #: [id number] AGE: [address]: Brant Anderson MD SEX: F ORDER DR: [id number] [place] [id number] [facility]. [place], [place] [address] [id number] I MR#: [id number] Acc #: [id number] NAME: RAF BADILLO : 1965 SEX: F STUDY DATE/TIME: 11/01/2016 3:22 UNIT: A U ROOM: [facility] STUDY DESCRIPTION: CT Chest Wo Cont Attending Physician: Brant Anderson M.D. Ordering Physician: Estefani Veloz M.D. Primary Care Physician: Ranjan Montoya Jr., A.P.R.N. MEDICAL IMAGING REPORT This report is preliminary unless electronic signature is present EXAM CT chest, noncontrast, 11/01/2016 HISTORY 50-year-old female with history of breast cancer widely metastatic to bone, liver and brain. She has increasing shortness of air and congestion. TECHNIQUE CT examination of the chest without IV contrast. This CT examination was performed with one or more of the following radiation dose reduction techniques: automatic exposure control, adjustment of mA and/or kV according to patient size, and iterative reconstruction. COMPARISON Recent CT chest, 10/22/2016. FINDINGS Extensive ill-defined sclerotic and lytic metastatic disease throughout the entire bony thorax, unchanged. Since the recent prior study, opacification of multiple central left lower lobe bronchi with mucoid material has developed, there is minimal patchy infiltrate in the peripheral left lung base. Lungs are otherwise clear. Patchy apical airspace infiltrates present on the previous study have cleared. There is a finely nodular interstitial pattern throughout both lungs which could represent early pulmonary or lymphangitic metastatic disease. This is unchanged. There is no pleural effusion, there is no significant thoracic adenopathy. Limited images through the uppermost abdomen show hepatomegaly and extensive nodular metastatic disease throughout all segments of the liver. IMPRESSION [facility] A Service of [facility] & [facility] RADIOLOGY TEXT RESULTS PATIENT: RAF BADILLO LOCATION: [facility] 326-01 : 61 UNIT #: [id number] AGE: [address]: Brant Anderson MD SEX: F ORDER DR: 1. Extensive mixed sclerotic and lytic skeletal metastatic disease throughout the entire visualized bony thorax, unchanged since prior exams. 2. Extensive nodular metastatic disease throughout the liver, unchanged. 3. Finely nodular interstitial pattern throughout both lungs may represent early pulmonary or even lymphangitic pulmonary metastatic disease. There is no pleural effusion or thoracic adenopathy. This pattern is unchanged since the prior exam. 4. Minimal patchy airspace infiltrates at the lung apices on the prior study of 10/22/2016 have cleared. The patient has developed fluid or mucus opacification of central lower lobe bronchi, greater on the left with some patchy peripheral infiltrate in the left lung base, new since the prior exam. Remainder of the exam is unchanged. Dictated by... Tavares Mcnamara M.D. THIS IS AN ELECTRONICALLY VERIFIED REPORT Tavares Mcnamara M.D. at 11/01/2016 9:58 PM FLOWER/ravi TD: 11/01/2016 12:23 JOB #: [id number] MEDICAL IMAGING REPORT COPY
--- NOTE | ~2016-10-31 | CR72 ---
[facility] A Service of [facility] RADIOLOGY TEXT RESULTS PATIENT: RAF BADILLO LOCATION: [facility] 326- : 63 UNIT #: [id number] AGE: [address]: Brant Anderson MD SEX: F ORDER DR: [id number] [facility] [address] [place], [place] [address] [id number] I MR#: [id number] Acc #: [id number] NAME: RAF BADILLO : 1965 SEX: F STUDY DATE/TIME: 10/31/2016 22:15 UNIT: [address] ROOM: [facility] STUDY DESCRIPTION: CR Chest Single View Portable Attending Physician: Brant Anderson M.D. Ordering Physician: Howard Wolf M.D. Primary Care Physician: Ranjan Montoya Jr., A.P.R.N. MEDICAL IMAGING REPORT This report is preliminary unless electronic signature is present EXAM Portable chest HISTORY Shortness of air, cough and congestion for 2 days. FINDINGS The cardiac size and pulmonary vascularity are normal. Mild bilateral interstitial prominence is similar to 10/22/2016. No focal airspace infiltrates or effusions. Old lateral right upper rib fractures. Mild right lower thoracic curve. IMPRESSION 1. Stable mild interstitial prominence in both lungs compared to 10/22/2016. 2. No new focal infiltrates. 3. Remainder of the chest is stable. Dictated by... Stalin Owen M.D. THIS IS AN ELECTRONICALLY VERIFIED REPORT Stalin Owen M.D. at 11/01/2016 12:40 PM AUBRIE/la nena TD: 11/01/2016 11:47 JOB #: [id number] MEDICAL IMAGING REPORT COPY
--- NOTE | ~2016-10-31 | EKG ---
PATIENT: RAF BADILLO UNIT #: [id number] Ventricular Rate: 122 BPM Atrial Rate: 122 BPM P-R Interval: 132 ms QRS Duration: 72 ms Q-T Interval: 334 ms QTC Calculation(Bezet): 475 ms P Minturn: 64 degrees Calculated R Minturn: -46 degrees Calculated T Minturn: -12 degrees Diagnosis Line: Sinus tachycardia Diagnosis Line: Left anterior fascicular block Diagnosis Line: Anterolateral infarct , age undetermined Diagnosis Line: Abnormal ECG Diagnosis Line: No previous ECGs available Diagnosis Line: Confirmed by TIMOTHY CLAYTON MD ([id number]) on Diagnosis Line: 11/01/2016 8:03:17 AM INTERPRETING MD: FORREST EAGLE
--- NOTE | ~2016-10-31 | DS ---
Unit #: [id number] #: [id number] Patient: RAF BADILLO [id number] [address] [address] [id number] I MR#: [id number] NAME: RAF BADILLO. ROOM: 326 Age: 50 Sex: F Admission Date: 11/01/2016 : 1965 Discharge Date: Attending Physician: Brant Anderson M.D. Primary Care Physician: Ranjan Montoya Jr., A.P.R.N. DISCHARGE SUMMARY DISCHARGE DIAGNOSES 1. Tachybrady syndrome with 4+ second pauses. 2. Acute hypoxic respiratory failure. 3. Healthcare-associated pneumonia. 4. Recent pneumonia and flu on 10/22/16. 5. 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 6. Muscular dystrophy. 7. Low platelets. 8. Transaminitis. 9. Multiple drug allergies. MOST RECENT LABORATORY RESULTS White blood cells 6.4, hemoglobin 8.9, hematocrit 27.5, platelets 44. Bilateral extremity venous Dopplers are negative. Echo is pending. HOSPITAL COURSE The patient is a 50-year-old female who does not have a head sampler. She reports that she did have a cardiac cath ten years ago at [place], [place] but details are unknown but the patient reports she did not go under any intervention at that time. The patient has a past medical history of stage 4 breast cancer with progressive disease. 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 The cancer is ER/[place] positive. The plans are for her to have chemotherapy in the future, per the patient. Additional past medical history includes muscular dystrophy, tobaccoism, multiple drug allergies. The patient was recently admitted to this facility on October 22, 2016, for influenzae multifocal pneumonia. At that time, she underwent a bronchoscopy which showed rare normal jett, respiratory jett and 1+ yeast species. Her blood cultures were negative at times. She was treated with Augmentin and Tamiflu and was discharged home. The patient has completed her course of antibiotics; however, presented back to the hospital with complaints of shortness of breath, cough, chills and dizziness. Chest x-ray did not show new infiltrate. Her troponin was 0.05. Her EKG shows sinus tachycardia. However, telemetry strip shows episodes of bradycardia with pauses up to four seconds. The patient is not on any medication that would lower her heart rate. She has been started on IV vancomycin and cefepime. The hospitalist team and oncology have been following. Unit #: [id number] #: [id number] Patient: RAF BADILLO Today, the patient's vital signs are temperature 97.5, heart rate 78, respirations 18, blood pressure 115/80. She is oxygenating 96% this morning. Her platelets are 44. Her BNP is pending. Her echo is still pending. The patient is still having pauses greater than four seconds. She does appear to be asymptomatic. I have discussed this with the patient and she has rescinded her DNR. I have discussed this also with the patient's sister, Saray Haque, who does not have POA papers finalized at this time. I have discussed this case with Dr. Howard and Dr. [facility]errato. [facility] I have discussed the possibility of dopamine with Dr. Howard and at this time he would like to monitor the patient. DISCHARGE FOLLOWUP AND INSTRUCTIONS 1. The patient will be transferred to [facility] for a permanent pacemaker with Dr. Serrato and a consult will need to be obtained for this. 2. Transfer medications are: a) Combivent 3 mL inhalation four times daily. b) Combivent 3 mL q.2 hours p.r.n. c) Solu-Medrol 40 mg IV t.i.d. d) Dexamethasone 4 mg p.o. daily. e) Zofran 4 mg IV q.6 hours p.r.n. nausea. f) Anastrozole 1 mg p.o. daily. g) Lasix 40 mg IV daily. h) Humibid LA 600 mg p.o. b.i.d. i) Florastor 250 mg p.o. b.i.d. j) MS-Contin 30 mg p.o. b.i.d. k) Protonix 40 mg p.o. daily. l) Calcium plus vitamin D, one tab p.o. daily. m) Vancomycin 1 g IV q.12 hours. n) Cefepime 2 g IV q.12 hours. Please note that I have also discussed this with patient's hospitalist, Dr. Brant Anderson. Dictated by... Christine Lowery A.P.R.N. for Bimal Howard M.D. AM/jessa TD: 11/02/2016 08:28 JOB #: [id number] DISCHARGE SUMMARY Page 1 of 1 X Christine Lowery APRN X DISCHARGE SUMMARY
--- NOTE | ~2016-10-31 | CO ---
Unit #: [id number] #: [id number] Patient: ARF BADILLO [id number] [address] [address] [id number] MR#: [id number] NAME: RAF BADILLO. ROOM: 326 Age: 50 Sex: F Admission Date: 11/01/2016 : 1965 Attending Physician: Brant Anderson M.D. Primary Care Physician: Ranjan Montoya Jr., A.P.R.N. CONSULTATION REPORT REASON FOR CONSULTATION Tachybrady syndrome and pauses. 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 The patient reports that she did have a cardiac cath approximately 10 years ago in [place], [place], but details are unknown. The patient states that she did not undergo any intervention at that time. The patient's past medical history includes stage IV breast cancer with progressive disease. 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 The breast cancer is ER/OH positive. The plans are for her to have chemotherapy in the future. Additional past medical history includes muscular dystrophy, tobaccoism, and she has multiple drug allergies. The patient was recently admitted to this facility on October 22, 2016 for influenza and multifocal pneumonia. At that time she underwent a bronchoscopy, which showed rare normal respiratory jett and 1+ yeast species. Her blood cultures at that time were negative. She was treated with Augmentin and Tamiflu and was discharged home approximately 6 days ago. The patient reports that since her discharge, she has remained with a persistent deep cough. She does have productive sputum. She also endorses shortness of breath, fever, chills and episodes of dizziness and weakness. She denies any chest pain. She reported back to the emergency department when she felt febrile. Her chest x-ray does not show a new infiltrate. Her troponin was 0.05. EKG shows sinus tachycardia; however, telemetry strips do show some episodes of bradycardia with pauses. PAST MEDICAL HISTORY 1. Reportedly cardiac catheterization approximately 10 years ago in [place], [place]. Details unknown. 2. Stage IV breast cancer with progressive disease. 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 The cancer is ER/OH positive, and she is to have chemotherapy in the future. 3. Muscular dystrophy. 4. COPD. 5. Tobaccoism. PAST SURGICAL HISTORY 1. Left elbow surgery. Unit #: [id number] #: [id number] Patient: RAF BADILLO 2. Oral surgery. 3. Tonsillectomy and adenoidectomy. 4. . ALLERGIES NSAIDs, lisinopril, OxyContin, aspirin, Tylenol, Naprosyn, Norvasc, Coreg, Zantac, ARBs and latex. HOME MEDICATIONS 1. Anastrozole 1 mg p.o. daily. 2. Calcium plus vitamin D 1 tab p.o. daily. 3. MS Contin 30 mg p.o. b.i.d. 4. Compazine 10 mg p.o. q.6 hours p.r.n. 5. Dexamethasone 4 mg p.o. daily. 6. Promethazine 25 mg p.o. q.6 hours p.r.n. nausea. 7. Omeprazole 20 mg p.o. daily. 8. Prednisone 10 mg p.o. daily. 9. Augmentin 500 mg p.o. b.i.d. 10. The patient recently finished up her dose of Tamiflu. FAMILY HISTORY Positive for breast cancer, lupus and hypertension. SOCIAL HISTORY The patient smokes half a pack of cigarettes per day. She does not drink alcohol or use illicit drugs. She states she is able to ambulate; however, she is not able to ambulate very far. She states she is able to walk to her bedroom, to the restroom with assistance but then she will require assistance getting up and down off the toilet. REVIEW OF SYSTEMS A 10-point review of systems has been done and is considered, otherwise, negative unless indicated in the HPI. PHYSICAL EXAMINATION GENERAL: The patient is a 50-year-old female who is awake, alert, in no acute distress. VITAL SIGNS: Temperature 97.5, heart rate 89, respirations 14, blood pressure 130/80. HEENT: Head is atraumatic, normocephalic. Pupils are equal, round and reactive. Extraocular movements are intact. No discharge from ears or nares. NECK: Supple. Trachea is midline. Normal carotid upstrokes. CHEST: Wheezes and rhonchi bilaterally. CARDIOVASCULAR: S1, S2. Regular rate and rhythm. No murmurs, rubs or gallops appreciated. ABDOMEN: Abdomen is soft, nontender, nondistended. Bowel sounds are positive in all 4 quadrants. No hepatosplenomegaly is appreciated. SKIN: Skin appears to be warm, dry and intact. She does have some bruising noted on her arms. EXTREMITIES: No clubbing or cyanosis. The patient has +1 to 2 bilateral lower extremity edema. NEUROLOGIC: The patient is alert and oriented x3. She is pleasant and conversant. No focal deficits. DIAGNOSTIC STUDIES IMAGING: Chest x-ray shows no infiltrate. Unit #: [id number] #: [id number] Patient: RAF BADILLO Bilateral lower extremity venous Dopplers are pending. CARDIOVASCULAR: EKG shows sinus tachycardia. Echo is pending. LABS: White blood cells 6.9, hemoglobin 10.1, hematocrit 32.1, platelets 56. Sodium 142, potassium 4.1, chloride 102, CO2 26, BUN 37, creatinine 0.8, glucose 82. TSH 1.7, T4 0.57. AST is 212, ALT 223, alkaline phosphatase 768. Troponin less than 0.05. ASSESSMENT 1. 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 2. Acute hypoxic respiratory failure. 3. Healthcare-associated pneumonia. 4. Recent multifocal pneumonia and flu on October 22, 2016. 5. Stage IV breast cancer with metastases. 6. Muscular dystrophy. 7. Tobaccoism. 8. Multiple allergies. 9. Transaminitis. PLAN Two-D echocardiogram and Dopplers have been ordered. Will trend cardiac enzymes x2. Will check a CMP, magnesium, lipid panel in the morning. Will do strict I's and O's. Will start the patient on Lasix [address] Cruz will need to see the patient to discuss ischemic workup versus permanent pacemaker. I will ask him to review the telemetry monitoring and EKG strips. Dictated by... Christine Lowery A.P.R.N. for Ramon Cruz M.D. AM/aftab TD: 11/01/2016 15:45 JOB #: [id number] CONSULTATION REPORT X Christine Lowery APRN CONSULTATION REPORT
--- NOTE | ~2016-10-31 | US84 ---
[id number] [facility] [address] [place], [place] [address] [id number] MR#: [id number] Acc #: [id number] NAME: RAF BADILLO : 1965 SEX: F STUDY DATE/TIME: 11/01/2016 8:05 UNIT: C3A PCU ROOM: [facility] STUDY DESCRIPTION: US LE Veins Complete Josh Stdy Attending Physician: Brant Anderson M.D. Ordering Physician: Estefani Veloz M.D. Primary Care Physician: Ranjan Montoya Jr., A.P.R.N. MEDICAL IMAGING REPORT This report is preliminary unless electronic signature is present EXAM Bilateral lower extremity venous duplex ultrasound 11/01/2016 HISTORY 50-year-old female with shortness of breath for 1 day. COMPARISON None FINDINGS Real time vanegas-scale, color Doppler, spectral Doppler analysis of the bilateral lower extremity deep venous systems demonstrates normal venous waveforms with normal compressibility and augmentation throughout. No evidence of bilateral lower extremity deep venous thrombosis. IMPRESSION Negative for bilateral lower extremity DVT Dictated by... Isaias Agrawal M.D. THIS IS AN ELECTRONICALLY VERIFIED REPORT Isaias Agrawal M.D. at 11/02/2016 8:24 AM RC/bernice TD: 11/01/2016 13:12 JOB #: [id number] MEDICAL IMAGING REPORT Page 1 of 1 COPY
--- NOTE | ~2016-10-31 | HP ---
Unit #: [id number] #: [id number] Patient: RAF BADILLO [id number] [address] [place], [place] [address] [id number] MR#: [id number] NAME: RAF BADILLO ROOM: 33823 Age: 50 Sex: F Admission Date: 11/01/2016 : 1965 Attending Physician: Estefani Veloz M.D. Primary Care Physician: Ranjan Montoya Jr., A.P.R.N. HISTORY AND PHYSICAL CHIEF COMPLAINT Persistent cough, respiratory failure. HISTORY This 50-year-old female with stage 4 breast cancer, muscular dystrophy, is admitted for persistent cough and respiratory failure. The patient was admitted to this facility 10/22/2016 for influenza and multifocal pneumonia. Ultimately underwent bronchoscopy showing rare normal respiratory jett and 1+ yeast species. Blood cultures remained negative. She was treated with Tamiflu and was discharged home on Augmentin 6 days ago. She states that since her discharge she has remained with a deep cough occasionally productive of milky sputum, shortness of breath, feeling feverish with chills and she notes episodes of dizziness and weakness. She comes back to the emergency department where she is afebrile, although intermittently is tachycardic with occasional pauses. Chest x-ray does not show new infiltrate. She did have wheezing on exam and was treated with Solu-Medrol and given a 1 liter of saline. PAST MEDICAL HISTORY 1. Stage 4 breast cancer with progressive disease. 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 The breast cancer is ER/GA positive. Plans are for chemotherapy in the future. 2. Recent negative HIDA scan. 3. Muscular dystrophy. 4. Left elbow surgery. 5. Oral surgery. 6. T and A. 7. . ALLERGIES Nonsteroidal anti-inflammatory drugs, lisinopril, OxyContin, aspirin, Tylenol, Naprosyn, Norvasc, Coreg, Zantac, ARBs, latex. HOME MEDICATIONS From the best I can determine include anastrozole 1 mg daily; calcium plus D daily; MS Contin 30 mg b.i.d.; Compazine p.r.n.; dexamethasone 4 mg daily; Phenergan p.r.n.; omeprazole 20 mg daily; prednisone taper; Augmentin 500 mg b.i.d. FAMILY HISTORY Breast cancer, SLE, hypertension. Unit #: [id number] #: [id number] Patient: RAF BADILLO SOCIAL HISTORY The patient lives with a male friend. She smokes 1 1/2 pack per day of tobacco, does not drink alcohol. REVIEW OF SYSTEMS Notable for shortness of breath, some wheezing, weakness, cough, stage 4 breast cancer, above mentioned surgeries, muscular dystrophy. All other systems were reviewed and are otherwise negative. PHYSICAL EXAMINATION GENERAL: Pleasant, chronically ill appearing 50-year-old female currently in no acute distress. VITAL SIGNS: Temperature 97.5, pulse 137, currently heart rate is 55, respirations 26, blood pressure 141/103, O2 saturation 89% on room air. HEENT: Eyes - PERRLA. Extraocular muscles are intact. Pharynx is benign, edentulous. NECK: Supple without adenopathy or thyromegaly. CHEST: Reveals rhonchi. CARDIAC: Normal S1 and S2 without murmur. ABDOMEN: Bowel sounds are present, mild hepatosplenomegaly on exam, nontender, no masses. EXTREMITIES: 2-3+ bilateral pedal edema. Negative Coty sign. Some bruising noted. NEUROLOGIC: Patient is awake, alert, and oriented. Cranial nerves are intact. Equal strength throughout but quite weak on exam. DIAGNOSTIC STUDIES ADMISSION LABS: Hematocrit is 36.9, normal white count. Platelet count is 68, has been low in the past as well. Coags normal. SMA 12 - BUN is 37, bilirubin 3.5, was 2.5 before, AST 212, ALT 223, alk phos 768, lactic acid 2.1. ABG - pH 7.48, pC02 33, pO2 63, O2 saturation is 89.8% on 4 L of oxygen. Cardiac markers are negative. IMAGING STUDIES: Chest x-ray - no new infiltrate noted. CARDIOLOGY STUDIES: EKG - sinus tachycardia rate 122, poor R wave progression. ASSESSMENT 1. Persistent cough and shortness of breath with wheezing after treatment for influenza and multifocal pneumonia, not improving with Augmentin. Patient presents with acute hypoxic respiratory failure. 2. Intermittently tachy with pauses and then drew. 3. COPD exacerbation, ongoing tobacco abuse. 4. Stage 4 breast cancer. 5. Muscular dystrophy. 6. Thrombocytopenia. PLANS 1. Blood and sputum cultures. 2. CT scan of the chest without contrast. 3. IV fluids and supportive treatment. 4. Vancomycin and cefepime pending CT scan of the chest, and cultures. Will also ask for a procalcitonin level, and ask that pulmonary see the patient as they saw the patient last time. Will de-escalate antibiotics accordingly. 5. Check venous Dopplers of the legs. 6. SCDs for DVT prophylaxis. Unit #: [id number] #: [id number] Patient: RAF BADILLO 7. Florastor. 8. Steroids, mucolytics, DuoNeb. 9. Obtain Holter monitor, echo, thyroid function test and ask cardiology to see. Dictated by Estefani Veloz M.D. AML/ts TD: 11/01/2016 06:00 JOB #: [id number] HISTORY AND PHYSICAL X Estefani Veloz MD X HISTORY AND PHYSICAL
--- NOTE | ~2016-10-31 | HM ---
Unit #: [id number] #: [id number] Patient: RAF BADILLO [id number] [address] [address] [id number] I MR#: [id number] NAME: RAF BADILLO. : 1965 SEX: F STUDY DATE/TIME: UNIT: C3A U ROOM: [address] [place] [address] DESCRIPTION: Holter Monitor Attending Physician: Brant Anderson M.D. Primary Care Physician: Ranjan Montoya Jr., A.P.R.N. CARDIOLOGY REPORT EXAM Holter Monitor DATE APPLIED 11/01/2016 DATE SCANNED 11/15/[address] Veloz READ BY Dr. Ashok Villar REASON FOR TEST PNA, arrhythmia. COMMENTS 1. Underlying rhythm is normal sinus. Minimum recorded heart rate is 24 beats/minute seen at 6:05 a.m. on 02 of November with a maximal recorded heart rate of 135 beats/minute. 2. A 5.38 second pause is seen at 7 a.m. on the morning of 02 of November. 3. There were occasional premature ventricular contractions with a total of 86 beats recorded in 24 hours. 4. There were 9 runs of ventricular tachycardia with the longest run consisting of 11 beats at a rate of 112 beats/minute on 01 of November and 7 beat run at a rate of 118 beats/minute at 1:38 p.m. 5. Frequent premature atrial contractions are noted. 6. There was a 15 beat run of atrial tachycardia at a rate of 110 beats/minute seen at 5:08 p.m. on November 01. 7. No symptoms are recorded. 8. The patient was at the hospice unit and soon thereafter. Dictated by... Pepe Gomez/jessa Unit #: [id number] #: [id number] Patient: RAF BADILLO TD: 11/19/2016 06:22 JOB #: [id number] CARDIOLOGY REPORT Page 1 of 1 X Ashok Villar MD HOLTER MONITOR REPORT
[~2016-10-31 22:23] MED LIST changes: +AMLODIPINE BESY10 MG PO; +ANASTROZOLE1 MG PO; +AUGMENTIN PO; +CALCIUM 600 +1 EAC2 PO; +COMPAZINE10 M2 PO; +DEXAMETHASONE4 MG PO; +LASIX20 MG PO; +MS CONTIN30 M1 PO; +OMEPRAZOLE20 M1 PO; +PREDNISONE PO; +PROMETHAZINE HC25 MG PO; +TAMIFLU75 M1 PO
[2016-10-31 22:26] LABS: ARTERIAL BLD GAS O2 SATURATION 89.8 % (90.0-100.0); ARTERIAL BLOOD GAS CARBOXY HB 1.5 %sat (0.0-9.0); ARTERIAL BLOOD GAS HCO3 25.3 mmol/L; ARTERIAL BLOOD GAS MET HB 0.6 %sat (0.0-2.0); ARTERIAL BLOOD GAS PCO2 33.8 mmHg (35.0-45.0); ARTERIAL BLOOD GAS pH 7.483 (7.350-7.450)
[2016-10-31 22:28] LABS: ARTERIAL BLOOD GAS ALLEN TEST NORMAL; ARTERIAL BLOOD GAS ART SITE LEFT RADIAL; ARTERIAL BLOOD GAS DELIVERY NASAL CANNULA; ARTERIAL DRAW? YES
[2016-10-31 22:33] LABS: POC - TROPONIN <0.05 ng/mL (<=0.05)
[2016-10-31 22:46] LABS: INR 1.1; PARTIAL THROMBOPLASTIN TIME 22.4 SECONDS (23.5-31.3); PROTHROMBIN TIME (PATIENT) 11.4 SECONDS (9.6-11.5)
[2016-10-31 22:54] LABS: BASOPHIL% 0.2 % (0-2.5); EOSINOPHIL% 0.1 % (0.0-7.0); HEMATOCRIT 36.9 % (35.0-45.0); HEMOGLOBIN 11.7 gm/dL (12.0-16.0); LYMPHOCYTE# 1.1 X10e3 (1.0-3.5); LYMPHOCYTE% 12.2 % (17.0-45.0); MEAN CELL VOLUME 88.4 FL (83-96); MEAN CORPUSCULAR HGB CONC 31.6 g/dL (30-36); MEAN PLATELET VOLUME 9.1 FL (6.5-11.5); MONOCYTE# 0.6 X10e3 (0-1.0); MONOCYTE% 6.9 % (3.0-12.0); NEUTROPHIL# 7.1 X10e3 (1.5-7.1); NEUTROPHIL% 80.6 % (40-75); RED BLOOD COUNT 4.17 X10e (3.90-5.30); RED CELL DISTRIBUTION WIDTH 24.8 % (11.0-15.5); WHITE BLOOD COUNT 8.8 X10e3 (4.0-10.5)
[2016-10-31 22:58] LABS: DIFF IND YES; PLATELET COUNT 68 X10e3 (140-420)
[2016-10-31 22:59] LABS: ALBUMIN SERUM 3.5 g/dL (3.5-5.0); ALKALINE PHOSPHATASE 768 U/L (32-92); ALT (SGPT) 223 U/L (10-40); AST (SGOT) 212 U/L (10-42); BILIRUBIN, DIRECT 1.6 mg/dL (0.0-0.2); BILIRUBIN,INDIRECT 1.9 mg/dL (0.0-0.9); BILIRUBIN,TOTAL 3.5 mg/dL (0.2-2.0); BLOOD UREA NITROGEN 37 mg/dL (9-23); BUN/CREATININE RATIO 46.25; CALCIUM SERUM 10.2 mg/dL (8.4-10.2); CARBON DIOXIDE 26 mmol/L (22-31); CHLORIDE 102 mmol/L (100-111); CREATININE SERUM 0.8 mg/dL (0.6-1.4); GLOM FILT RATE Estimated ABOVE60 mL/min (>60); GLUCOSE FASTING 82 mg/dL (70-110); POTASSIUM 4.1 mmol/L (3.5-5.1); PROTEIN TOTAL SERUM 6.4 g/dL (6.0-8.3); SODIUM 142 mmol/L (135-145)
[2016-10-31 23:01] LABS: NUCLEATED RED BLOOD CELL 3 /100 (0); PLATELET ESTIMATE DECREASED (NORMAL); POLYCHROMASIA MOD
[2016-10-31 23:02] LABS: ANISOCYTOSIS MOD; MICROCYTOSIS MOD; POIKILOCYTOSIS MOD; ROULEAUX SLIGHT
[2016-11-01 05:53] LABS: BASOPHIL% 0.5 % (0-2.5); EOSINOPHIL% 0.1 % (0.0-7.0); HEMATOCRIT 32.1 % (35.0-45.0); HEMOGLOBIN 10.1 gm/dL (12.0-16.0); LYMPHOCYTE# 0.7 X10e3 (1.0-3.5); LYMPHOCYTE% 9.6 % (17.0-45.0); MEAN CELL VOLUME 89.6 FL (83-96); MEAN CORPUSCULAR HEMOGLOBIN 28.3 PG (28-34); MEAN CORPUSCULAR HGB CONC 31.6 g/dL (30-36); MEAN PLATELET VOLUME 9.9 FL (6.5-11.5); MONOCYTE# 0.4 X10e3 (0-1.0); MONOCYTE% 5.4 % (3.0-12.0); NEUTROPHIL# 5.8 X10e3 (1.5-7.1); NEUTROPHIL% 84.4 % (40-75); PLATELET COUNT 56 X10e3 (140-420); RED BLOOD COUNT 3.58 X10e (3.90-5.30); RED CELL DISTRIBUTION WIDTH 24.3 % (11.0-15.5); WHITE BLOOD COUNT 6.9 X10e3 (4.0-10.5)
[2016-11-01 05:56] LABS: DIFF IND NO
[2016-11-01 06:28] LABS: THYROID STIMULATING HORMONE 1.7 uIU/ml (0.34-5.60)
[2016-11-01 06:35] LABS: FREE THYROXIN (T4) 0.57 ng/dL (0.58-1.64)
[2016-11-01 13:58] LABS: INR 1.1; PARTIAL THROMBOPLASTIN TIME 23.6 SECONDS (23.5-31.3); PROTHROMBIN TIME (PATIENT) 11.1 SECONDS (9.6-11.5)
[2016-11-01 14:23] LABS: PROCALCITONIN 0.44 NG/ML
[2016-11-01 15:02] LABS: %MB 2.6 % (0.0-4.0); MB 5.1 ng/ml
[2016-11-01 15:04] LABS: ALKALINE PHOSPHATASE 607 U/L (32-92); ALT (SGPT) 177 U/L (10-40); AST (SGOT) 186 U/L (10-42); BILIRUBIN,TOTAL 3.1 mg/dL (0.2-2.0); BLOOD UREA NITROGEN 33 mg/dL (9-23); CALCIUM SERUM 9.1 mg/dL (8.4-10.2); CARBON DIOXIDE 22 mmol/L (22-31); CHLORIDE 107 mmol/L (100-111); CREATININE SERUM 0.5 mg/dL (0.6-1.4); GLOM FILT RATE Estimated ABOVE60 mL/min (>60); GLUCOSE FASTING 116 mg/dL (70-110); POTASSIUM 4.1 mmol/L (3.5-5.1); PROTEIN TOTAL SERUM 5.5 g/dL (6.0-8.3); SODIUM 137 mmol/L (135-145)
[2016-11-01 19:54] LABS: %MB 2.3 % (0.0-4.0); MB 4.4 ng/ml
[2016-11-02 07:09] LABS: BASOPHIL% 0.2 % (0-2.5); HEMATOCRIT 27.5 % (35.0-45.0); HEMOGLOBIN 8.9 gm/dL (12.0-16.0); LYMPHOCYTE# 0.5 X10e3 (1.0-3.5); LYMPHOCYTE% 7.6 % (17.0-45.0); MEAN CELL VOLUME 89.2 FL (83-96); MEAN CORPUSCULAR HEMOGLOBIN 28.8 PG (28-34); MEAN CORPUSCULAR HGB CONC 32.2 g/dL (30-36); MEAN PLATELET VOLUME 9.3 FL (6.5-11.5); MONOCYTE# 0.3 X10e3 (0-1.0); NEUTROPHIL# 5.6 X10e3 (1.5-7.1); NEUTROPHIL% 87.2 % (40-75); RED BLOOD COUNT 3.08 X10e (3.90-5.30); RED CELL DISTRIBUTION WIDTH 25.5 % (11.0-15.5); WHITE BLOOD COUNT 6.4 X10e3 (4.0-10.5)
[2016-11-02 07:13] LABS: DIFF IND NO; PLATELET COUNT 44 X10e3 (140-420)
[2016-11-02 07:35] LABS: ALBUMIN SERUM 2.6 g/dL (3.5-5.0); ALKALINE PHOSPHATASE 707 U/L (32-92); ALT (SGPT) 178 U/L (10-40); AST (SGOT) 188 U/L (10-42); BILIRUBIN,TOTAL 3.2 mg/dL (0.2-2.0); BLOOD UREA NITROGEN 29 mg/dL (9-23); CALCIUM SERUM 9.3 mg/dL (8.4-10.2); CARBON DIOXIDE 25 mmol/L (22-31); CHLORIDE 105 mmol/L (100-111); CHOLESTEROL 196 mg/dL (0-200); CREATININE SERUM 0.5 mg/dL (0.6-1.4); GLOM FILT RATE Estimated ABOVE60 mL/min (>60); GLUCOSE FASTING 113 mg/dL (70-110); HDL CHOLESTEROL 50 mg/dL (35-95); LDL CHOLESTEROL 114 mg/dL (-130); LDL/HDL RATIO 2 RATIO (0-4); MAGNESIUM 2.1 mg/dL (1.6-3.0); PROTEIN TOTAL SERUM 4.7 g/dL (6.0-8.3); SODIUM 141 mmol/L (135-145); TRIGLYCERIDES 159 mg/dL (10-160)
== END 2016-11-02 14:39 | DRG 189 ==
LOC: CED 22:23 → CEDOF 11-01 01:00 → C3A PCU 11-01 10:43
PROVIDERS: Emergency Medicine; Family Medicine; Internal Medicine
DX: J96.01 Acute respiratory failure with hypoxia (principal); J18.9 Pneumonia, unspecified organism; C78.7 Secondary malignant neoplasm of liver and intrahepatic bile duct; C79.31 Secondary malignant neoplasm of brain; G71.0 Muscular dystrophy; C79.51 Secondary malignant neoplasm of bone; I49.5 Sick sinus syndrome; J44.0 Chronic obstructive pulmonary disease with (acute) lower respiratory infection; J44.1 Chronic obstructive pulmonary disease with (acute) exacerbation; D69.6 Thrombocytopenia, unspecified; C50.919 Malignant neoplasm of unspecified site of unspecified female breast; Z82.49 Family history of ischemic heart disease and other diseases of the circulatory system
CPT/HCPCS: 36415; 36600; 71010; 71250; 80048; 80053; 80061; 80076; 82308; 82550; 82553; 82803; 82947; 83605; 83735; 83880; 84439; 84443; 84484; 85025; 85610; 85730; 87040; 93005; 93225; 93226; 93306; 93970; 94640; 94760; 96361; 96374; 99291; J0692; J1940; J2920; J2930; J3370